=== PATIENT | male | born 1950 | race Two or more races ===

== ENCOUNTER 2024-07-18 22:25 | Emergency (ER) | payer MEDICARE, MEDICAID, SELFPAY ==
--- NOTE | 2024-07-18 22:38 | PC.NURSE ---
DR. GUERIN ASSESSING PATIENT AND NOT A STOKE ALERT PER DR. GUERIN.
--- NOTE | 2024-07-18 22:38 | PD.EDNEURO ---
Neuro Symptoms Deficit-RME/HPI General Chief Complaint: Neuro Symptoms/Deficit Stated Complaint: RIGHT FACIAL DROOP, UNABLE TO CLOSE EYE, UNSTEADY Time Seen by Provider: 07/18/24 22:47 Arrival date/time: 07/18/24 22:25 RME / HPI RME / HPI Narrative: Dr. Rowland?s Main ED Evaluation: 73yo male BIB his family presents to the ED for a chief complaint of right-sided facial droop x 1100. Multiple family members that are with the patient stated they noticed the patient to have a right facial droop this morning, reporting he has been unable to close his right eye since. They observed the patient drinking soda tonight and noticed it was drooling out of his mouth, so they brought him in for evaluation. Patient endorses having a right posterior headache since yesterday. No radiation or migration. He denies any weakness, numbness, tingling, slurred speech, or any other associated symptoms. Related Data Previous Rx's ?Medication ?Instructions ?Recorded carboxymethylcellulose sodium 1 % 1 drp ophthalmic (eye) TID #15 mL 07/18/24 eye drops (Artificial Tears (carboxymethylcellulose)) carboxymethylcellulose sodium 1 % 1 drp ophthalmic (eye) TID Rodriguez's 07/18/24 eye drops (Artificial Tears palsy #15 mL (carboxymethylcellulose)) ciprofloxacin HCl 0.3 % eye 1 applic ophthalmic (eye) BID 07/18/24 ointment (Ciloxan) Bacterial conjunctivitis 7 days #3.5 grams ciprofloxacin HCl 0.3 % eye 1 applic ophthalmic (eye) BID 07/18/24 ointment (Ciloxan) Bacterial conjunctivitis right eye 5 days #3.5 grams prednisone 50 mg tablet 50 mg PO QDAY #5 tabs 07/18/24 prednisone 50 mg tablet 50 mg PO QDAY #5 tabs 07/18/24 prednisone 50 mg tablet 50 mg PO QDAY 5 days #5 tabs 07/18/24 valacyclovir 1 gram tablet 1,000 mg PO TID Rodriguez's palsy 7 07/18/24 days #21 tabs valacyclovir 1 gram tablet 1,000 mg PO TID Rodriguez's palsy 7 07/18/24 days #21 tabs valacyclovir 1 gram tablet 1,000 mg PO TID Rodriguez's palsy 7 07/18/24 days #21 tabs Allergies Allergy/AdvReac Type Severity Reaction Status Date / Time No Known Allergies Allergy Verified 07/18/24 22:59 Review of Systems Review of Systems Systems Reviewed: All systems reviewed, normal except as documented ED Exam Narrative Physical exam: GENERAL APPEARANCE: alert and oriented x 4, well-developed, well-nourished, no acute distress VITALS: All vitals were reviewed and the pulse ox is 96% on room air, which is normal according to my interpretation. HEENT: Normocephalic, atraumatic; pupils equal, round, reactive to light; EOMI, right conjunctival injection; mucous membranes pink, moist; oropharynx clear NECK: Supple LUNGS: CTABL; no wheezes, no rales, no rhonchi HEART: Regular rate, regular rhythm; normal S1, S2; no murmurs ABDOMEN: non distended; normal BS; soft, no tenderness, no guarding, no rebound; no masses, no organomegaly, no hernia BACK: no CVA tenderness EXTREMITIES: atraumatic; no edema NEUROLOGIC: awake; alert and oriented x4; right facial droop with forehead involvement; normal motor and sensations to all 4 extremities; no intention tremor, steccato speech, dysmetria or dysdiadochokinesia PSYCHIATRIC: appropriate mood and affect SKIN: warm, dry, normal color; no rashes Course Quality Measures none Orders Category Date Time Status Miscellaneous Nursing Order NOW Care 07/18/24 22:48 Completed Acyclovir [Zovirax] Med 07/18/24 22:48 Discontinued 800 mg PO X1 ONE predniSONE Med 07/18/24 22:48 Discontinued 50 mg PO X1 ONE Vital Signs Vital signs: Vital Signs Temperature 98 F 07/18/24 22:42 Pulse Rate 80 07/18/24 22:42 Respiratory Rate 17 07/18/24 22:42 Blood Pressure 163/87 H 07/18/24 22:42 Pulse Oximetry (%) 96 07/18/24 22:42 Oxygen Delivery Method Room Air 07/18/24 22:42 Neuro Symptoms / Deficit MDM Narrative MDM Narrative:: Scribe Attestation: 07/18/24 - Janet Lucero, marlyn scribing for and in the presence of Dr. Rowland. Patient's physical exam is unremarkable aside from his right facial droop with forehead involvement and right conjunctival injection. Patient does not have ataxic gait, slurred speech or any other associated neurological symptoms. I do not feel the patient needs a stroke work-up at this time. Diagnosis is Rodriguez's Palsy. Patient is stable to be managed on an outpatient basis. Patient data External records reviewed:: [facility] previous records (Per chart review, patient has no previous ED visits or admissions to this facility.) Clinical information provided by:: patient and family Social determinants that could affect healthcare access:: none Patient has the following chronic illnesses:: None How is presenting disease/condition affected by chronic disease/condition?: no chronic disease Evaluation data The following diagnostics were reviewed and interpreted by me:: other (specify) (none) Lab and/or radiology exams considered but not ordered:: CT head and CTA head/neck were considered, but are not clinically indicated at this time. Interpretation Summary: none Medications / Prescriptions Medications or Prescriptions considered but not ordered:: none Medication administrations:: Medication Administration History Discontinued Medications Acyclovir (Acyclovir 800 Mg Tablet) 800 mg PO X1 ONE Stop: 07/18/24 22:49 Last Admin: 07/18/24 23:34 Dose: 800 mg Documented By: KAYLAN Prednisone (Prednisone 20 Mg Tablet) 50 mg PO X1 ONE Stop: 07/18/24 22:49 Last Admin: 07/18/24 23:33 Dose: 50 mg Documented By: KAYLAN see above, if any Consultations Consultation(s) initiated? (list below): No Diagnosis Neuro Differential Diagnosis: cerebrovascular accident, transient cerebral ischemia and other (Rodriguez's palsy) Most likely diagnosis given after review of the tests above:: Rodriguez's palsy Admission Indicated Admission indicated?: not indicated Admission Request Was there a request for admission?: No Disposition Plan Disposition Plan: Discharge Discharge Attestation Discharge Attestation: The patient and all family members were given an opportunity to ask questions and understood the discharge instructions. Discharge instructions specifically effects, indications for sooner follow up or return to the emergency department, and the expected course of current diagnosis. Patient condition: Stable Discharge Plan Plan Patient Disposition: HOME (Self Care) Discharge Disposition comment: Stable for discharge into family's care Patient condition on transfer: Stable Prescriptions/Referrals Prescriptions/Med Rec: New valacyclovir 1 gram tablet 1,000 mg PO TID 7 Days Qty: 21 0RF prednisone 50 mg tablet 50 mg PO QDAY Qty: 5 0RF prednisone 50 mg tablet 50 mg PO QDAY Qty: 5 0RF valacyclovir 1 gram tablet 1,000 mg PO TID 7 Days Qty: 21 0RF Artificial Tears (cmc) 1 % drops 1 drp ophthalmic (eye) TID Qty: 15 0RF Ciloxan 0.3 % ointment 1 applic ophthalmic (eye) BID 5 Days Qty: 3.5 0RF Rx Instructions: start on day 3 of therapy valacyclovir 1 gram tablet 1,000 mg PO TID 7 Days Qty: 21 0RF prednisone 50 mg tablet 50 mg PO QDAY 5 Days Qty: 5 0RF Artificial Tears (cmc) 1 % drops 1 drp ophthalmic (eye) TID Qty: 15 0RF Ciloxan 0.3 % ointment 1 applic ophthalmic (eye) BID 7 Days Qty: 3.5 0RF Rx Instructions: Right eye Referrals: [facility] [Provider Group] - In 1 week Problem List Clinical Impression: Rodriguez's palsy, Acute bacterial conjunctivitis of right eye Patient/Caregiver Discharge Instructions Education Materials: What Is Conjunctivitis?, ED Rodriguez's Palsy, ED Conjunctivitis, Nonspecific Additional Instructions: Please go to the pharmacy in the morning and pickle pumper your 4 prescriptions. 1 is artificial tears in your put those in Nikky's right eye 3 times a day. Another medicine is called Ciloxan. This is an antibiotic for his right eye as well. The other medications are called valacyclovir which he should take 3 times a day until they are gone and prednisone which he should take once per day for 5 days Please return to the ER if you have any worsening or any further medical problems and we will help you. Otherwise you should follow-up with your primary care doctor or in the family [facility] within the next several days Print Language: Ethiopian Stand Alone Forms: Alexia Award Info., Patient Portal Info Letter
[2024-07-18 22:39] VITALS: BMI 26.2
[2024-07-18 22:42] VITALS: BP 163/87; PULSE 80; RESP 17; TEMP 36.6; O2SAT 96
[2024-07-18] MEDS: predniSONE 20 MG TABLET 50 MG PO (23:33)
[2024-07-18] MEDS: ACYCLOVIR 800 MG TABLET PO (23:34)
== END 2024-07-18 23:40 | disposition home or self-care (01) ==
LOC: SERX 23:30
PROVIDERS: Emergency Provider Emergency Medicine; PCP Physician Assistant
DX: G51.0 Bell's palsy (principal); H10.31 Unspecified acute conjunctivitis, right eye
CPT/HCPCS: 99282; J7512; A9270

== ENCOUNTER → 2024-10-31 | Outpatient (CLI) | payer MEDICARE, MEDICAID, SELFPAY ==
--- NOTE | 2024-10-31 | XR_ITS ---
Examination: Bone densitometry Date and time of exam:October 31, 2024 1303 hours INDICATIONS: 74-year-old male with diagnosis age related osteoporosis Technique: Lumbar spine and hip total bone mineralization values of an calculated. Peak reference and age match control results have been displayed. Findings: Lumbar spine total bone mineralization is1.076 gm/cm2. This is 0.1 standard deviations below peak reference. This is 0.9 standard deviations above age-matched controls. Hip total bone mineralization is 0.976 gm/cm2 This is 0.4 standard deviations below peak reference. This is 0.4 standard deviations above age-matched controls Impression: There is normal mineralization based on lumbar spine measurements. There is osteopenia based on hip measurements
== END | disposition home or self-care (01) ==
PROVIDERS: PCP Physician Assistant; Referring Provider Nurse Practitioner Primary Care; Visit Provider Nurse Practitioner Primary Care
DX: M85.88 Other specified disorders of bone density and structure, other site (principal)
CPT/HCPCS: 77080